=== PATIENT | male | born 1985 | race African-American/Black ===

== ENCOUNTER 2017-06-14 11:10 | Emergency (ER) | payer OTHER ==
[~2017-06-14] VITALS: Ht 177.8 cm; Wt 88.5 kg
[2017-06-14 11:12] VITALS: BP 140/91
== END 2017-06-14 11:50 | disposition home or self-care (01) ==
LOC: ER 11:10
DX: R53.81 Other malaise (principal); F17.210 Nicotine dependence, cigarettes, uncomplicated